=== PATIENT | female | born 1995 | race Caucasian/White ===

== ENCOUNTER 2018-03-01 18:57 | Outpatient (CLI) | payer MEDICAID ==
[~2018-03-01] VITALS: Ht 167.6 cm; Wt 118.5 kg
[~2018-03-01 18:57] MED LIST: ARPZ20T PO; ATOM40CA3 PO; AZIT200S47 PO; FLT05NA16 NSEACH; HYDR473S16 PO; OMEP-10 PO; SRTR100T PO; tetracaine lollipops PO
[2018-03-01 19:37] VITALS: BP 134/81
[2018-03-01 20:13] LABS: BILIRUBIN,URINE NEGATIVE (NEGATIVE); CLARITY,URINE CLEAR; COLOR,URINE YELLOW; GLUCOSE, URINE (UA) NEGATIVE (NEGATIVE); KETONES,URINE NEGATIVE (NEGATIVE); LEUKOCYTE ESTERASE ,URINE 1+ (NEGATIVE); NITRITE,URINE NEGATIVE (NEGATIVE); PH,URINE 8 (5-9); PROTEIN,URINE 1+ (NEGATIVE); UROBILINOGEN,URINE NORMAL (NORMAL)
[2018-03-01 20:30] LABS: BACTERIA,URINE FEW /HPF; WBC,URINE 0-2 /HPF
[2018-03-01 20:45] VITALS: BP 136/88
--- NOTE | 2018-03-04 15:52 | Physician Query-Final Dx ---
VIVIAN YO 03/04/18 1552: Clinic Account Progress/Dx Physician Query: Please give diagnosis Please provide diagnosis and weeks of gestation. Date of Service Mar 01, 2018 at 18:57 GREG GRAY MD 03/14/18 0729: Clinic Account Progress/Dx DIAGNOSIS: Diagnosis 1. Abdominal pain--ligamentous stretch 2. IUP at 30 weeks gestation VIVIAN YO Mar 04, 2018 15:52 GREG GRAY MD Mar 14, 2018 07:29
== END 2018-03-01 21:00 | disposition home or self-care (01) ==
LOC: WSo 18:57 → LDRP 18:59 → WSo 21:00
PROVIDERS: ATTEND Family Medicine
DX: R10.9 Unspecified abdominal pain (principal); Z3A.30 30 weeks gestation of pregnancy
CPT/HCPCS: 81000; 99213

== ENCOUNTER → 2018-03-17 | Outpatient (CLI) | payer MEDICAID ==
--- NOTE | 2018-03-17 12:56 | Diagnostic Imaging Report ---
INDICATION: survey. TECHNIQUE: Multiple real-time grayscale images were obtained over the gravid uterus. COMPARISON: None. FINDINGS: There is a single live fetus in a cephalic presentation. heart rate was recorded at 144 beats per minute. Placenta is anterior. Amniotic fluid volume is normal. survey shows kidneys, bladder and stomach to be unremarkable. There is a four-chamber heart. There is a three-vessel cord with normal insertion. The spine is limited in evaluation due to position. In addition, brain posterior fossa is limited in evaluation. Biometrical measurements are as follows: Biparietal 7.99 cm, age 32 weeks 1 days. Head circumference 28.99 cm, age 32 weeks 0 days. Abdominal circumference 25.60 cm, age 29 weeks 6 days. Femur length 5.73 cm, age 30 weeks 1 days. Sonographic estimate age: 31 weeks 1 days. Sonographic estimated date of delivery: 05/18/2018. Estimated Weight: 1535 gm (+/- 224 gm). LMP percentile: 2%. heart rate: 144 beats per minute. number: 1 of 1. IMPRESSION: Single live IUP 31 weeks 1 day gestational age. Estimated date of confinement sonographically is 05/18/2018. survey is unremarkable although spine and brain was limited due to position. Followup could be obtained. Dictated by: Dictated on workstation # [id number]
== END ==
LOC: RAD 09:08
PROVIDERS: ATTEND Family Medicine
DX: Z36.89 Encounter for other specified antenatal screening (principal); Z3A.31 31 weeks gestation of pregnancy
CPT/HCPCS: 76805

== ENCOUNTER 2018-04-16 22:43 | Emergency (ER) | payer MEDICAID ==
[~2018-04-16] VITALS: Ht 167.6 cm; Wt 131.5 kg
[~2018-04-16 22:43] MED LIST changes: +IBUP-844 PO; +LABE200T7 PO; +PREN-53 PO
[2018-04-16] MEDS ORDERED: ACETAMINOPHEN 500 MG TAB (TYLENOL) PO ONE (23:30)
[2018-04-16 23:37] LABS: BASOPHILS % (AUTO) 0 % (0-10); EOSINOPHILS # (AUTO) 0.5 10^3/uL (0.0-0.3); EOSINOPHILS % (AUTO) 6 % (0-10); HEMATOCRIT 37 % (35-52); HEMOGLOBIN 12.3 G/DL (11.5-16.0); LYMPHOCYTES # (AUTO) 2.3 X 10^3 (1.0-4.0); LYMPHOCYTES % (AUTO) 28 % (12-44); MEAN CORPUSCULAR HEMOGLOBIN 29 PG (25-34); MEAN CORPUSCULAR HGB CONC 33 G/DL (32-36); MEAN CORPUSCULAR VOLUME 88 FL (80-99); MEAN PLATELET VOLUME 11.5 FL (7.4-10.4); MONOCYTES # (AUTO) 0.6 X 10^3 (0.0-1.0); MONOCYTES % (AUTO) 7 % (0-12); NEUTROPHILS # (AUTO) 4.9 X 10^3 (1.8-7.8); NEUTROPHILS % (AUTO) 59 % (42-75); PLATELET COUNT 212 10^3/uL (130-400); RED BLOOD COUNT 4.18 10^6/uL (4.35-5.85); WHITE BLOOD COUNT 8.3 10^3/uL (4.3-11.0)
--- NOTE | 2018-04-16 23:41 | ED GU-Female ---
General Chief Complaint: General Problems/Pain Stated Complaint: SWELLING,HEADACHE Source: patient Exam Limitations: no limitations History of Present Illness Date Seen by Provider: Apr 16, 2018 Time Seen by Provider: 23:24 Initial Comments Patient presents to ER by private conveyance with chief complaint she's having right upper quadrant abdominal pain and increased swelling in her bilateral lower extremities and around her waist as well as a mild headache 6 out of 10. It is not the worst headache of her life. She's having no visual disturbances. She normally wears glasses but she says she recently broke them. She remarks that she is 4 days post vaginal delivery otherwise healthy child where she was preeclamptic with hypertension. Her blood pressure is been elevated she suspects because her headache has come back. She does not know whether she had severe Dr. Gray. There is no history of seizure disorder. She' s been using labetalol 200 mg twice a day as well as ibuprofen 600 mg 4 times a day but her last dose being about 5 hours ago. at 36w Allergies and Home Medications Allergies Coded Allergies: Penicillins (Unverified Allergy, 04/18/12) aspartame (Unverified Allergy, 04/18/12) Home Medications Ibuprofen 600 Mg Tablet, 600 MG PO Q6H Prescribed by: GREG GRAY on 04/14/18 1028 Labetalol HCl 200 Mg Tablet, 200 MG PO BID Prescribed by: GREG GRAY on 04/14/18 1028 Patient Home Medication List Home Medication List Reviewed: Yes Review of Systems Review of Systems Constitutional: No chills, No diaphoresis, No fever EENTM: No hearing loss, No ear pain Respiratory: No cough, No phlegm Cardiovascular: No chest pain, No palpitations Gastrointestinal: No abdominal pain, No constipation, No diarrhea, No nausea Genitourinary: denies discharge, denies dysuria : No Expected Date of Delivery: Apr 12, 2018 Musculoskeletal: No back pain, No joint pain Past Fwhlocj-Xoqcox-Qrdacr Hx Patient Social History Alcohol Use: Denies Use Recreational Drug Use: Yes Drug of Choice: thc Smoking Status: Current Everyday Smoker Type Used: Cigarettes Recent Foreign Travel: No Contact w/Someone Who Travel: No Recent Hopitalizations: No Immunizations Up To Date PED Vaccines UTD: Yes Seasonal Allergies Seasonal Allergies: No Past Medical History Surgeries: Yes (wisdom teeth ) Respiratory: No Cardiac: No Neurological: No Genitourinary: No Gastrointestinal: No Musculoskeletal: Yes (WEAK ANKLE) Endocrine: No HEENT: No Cancer: No Psychosocial: Yes ADD/ADHD, Anxiety, PTSD, Bipolar, Personality Disorder, Schizophrenia, Depression Integumentary: No Blood Disorders: No Adverse Reaction/Blood Tranf: No Family Medical History Unobtainable family history due to adoption Physical Exam Vital Signs Vital Signs - First Documented 04/16/18 23:15 Temp 98.8 Pulse 84 Resp 20 B/P (MAP) 162/103 (122) Pulse Ox 99 O2 Delivery Room Air Capillary Refill : Height, Weight, BMI Height: 5'6.00" Weight: 295lbs. 4.0oz. 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, no motor/sensory deficits, alert, normal mood/affect, oriented x 3 Skin: normal color, warm/dry Progress/Results/Core Measures Suspected Sepsis SIRS Temperature: Pulse: Respiratory Rate: Laboratory Tests 04/16/18 23:25: White Blood Count 8.3 Blood Pressure / Mean: Laboratory Tests 04/16/18 23:25: Creatinine 0.80, Platelet Count 212, Total Bilirubin 0.3 Results/Orders Lab Results Laboratory Tests Test 04/16/18 23:25 04/16/18 23:41 Range/Units White Blood Count 8.3 4.3-11.0 10^3/uL Red Blood Count 4.18 L 4.35-5.85 10^6/uL Hemoglobin 12.3 11.5-16.0 G/DL Hematocrit 37 35-52 % Mean Corpuscular Volume 88 80-99 FL Mean Corpuscular Hemoglobin 29 25-34 PG Mean Corpuscular Hemoglobin Concent 33 32-36 G/DL Red Cell Distribution Width 17.0 H 10.0-14.5 % Platelet Count 212 130-400 10^3/uL Mean Platelet Volume 11.5 H 7.4-10.4 FL Neutrophils (%) (Auto) 59 42-75 % Lymphocytes (%) (Auto) 28 12-44 % Monocytes (%) (Auto) 7 0-12 % Eosinophils (%) (Auto) 6 0-10 % Basophils (%) (Auto) 0 0-10 % Neutrophils # (Auto) 4.9 1.8-7.8 X 10^3 Lymphocytes # (Auto) 2.3 1.0-4.0 X 10^3 Monocytes # (Auto) 0.6 0.0-1.0 X 10^3 Eosinophils # (Auto) 0.5 H 0.0-0.3 10^3/uL Basophils # (Auto) 0.0 0.0-0.1 10^3/uL Sodium Level 139 135-145 MMOL/L Potassium Level 4.1 3.6-5.0 MMOL/L Chloride Level 103 98-107 MMOL/L Carbon Dioxide Level 24 21-32 MMOL/L Anion Gap 12 5-14 MMOL/L Blood Urea Nitrogen 18 7-18 MG/DL Creatinine 0.80 0.60-1.30 MG/DL Estimat Glomerular Filtration Rate > 60 BUN/Creatinine Ratio 23 Glucose Level 82 70-105 MG/DL Calcium Level 9.3 8.5-10.1 MG/DL Corrected Calcium 9.9 8.5-10.1 MG/DL Magnesium Level 1.8 1.8-2.4 MG/DL Total Bilirubin 0.3 0.1-1.0 MG/DL Aspartate Amino Transf (AST/SGOT) 61 H 5-34 U/L Alanine Aminotransferase (ALT/SGPT) 44 0-55 U/L Alkaline Phosphatase 86 40-136 U/L Total Protein 6.1 L 6.4-8.2 GM/DL Albumin 3.3 3.2-4.5 GM/DL Urine Color YELLOW Urine Clarity CLEAR Urine pH 6 5-9 Urine Specific [place] 1.010 L 1.016-1.022 Urine Protein 4+ NEGATIVE Urine Glucose (UA) NEGATIVE NEGATIVE Urine Ketones NEGATIVE NEGATIVE Urine Nitrite NEGATIVE NEGATIVE Urine Bilirubin NEGATIVE NEGATIVE Urine Urobilinogen NORMAL NORMAL MG/DL Urine Leukocyte Esterase 1+ H NEGATIVE Urine RBC (Auto) 4+ H NEGATIVE Urine RBC RARE /HPF Urine WBC RARE /HPF Urine Squamous Epithelial Cells 0-2 /HPF Urine Crystals NONE /LPF Urine Bacteria TRACE /HPF Urine Casts NONE /LPF Urine Mucus NEGATIVE /LPF Urine Culture Indicated NO My Orders Orders - AUDREY BENITEZ Acetaminophen Tablet (Tylenol Tablet) (04/16/18 23:30) Cbc With Automated Diff (04/16/18 23:27) Comprehensive Metabolic Panel (04/16/18 23:27) Ua Culture If Indicated (04/16/18 23:27) Magnesium (04/16/18 23:27) Chest Pa/Lat (2 View) (04/17/18 00:01) Medications Given in ED Current Medications Medications Dose Ordered Sig/Le Route Start Time Stop Time Status Last Admin Dose Admin Acetaminophen 1,000 mg ONCE ONCE PO 04/16/18 23:30 04/16/18 23:34 DC 04/16/18 23:54 1,000 MG Vital Signs/I&O 04/16/18 23:15 Temp 98.8 Pulse 84 Resp 20 B/P (MAP) 162/103 (122) Pulse Ox 99 O2 Delivery Room Air Capillary Refill : Progress Note : Time: 23:45 Progress Note Headache could be secondary to the elevated blood pressure and is not worse in her life nor's or any other neurologic symptoms. No evidence of fluid overload such as pulmonary edema seizures are slowed mentation. Her edema in her bilateral lower extremities is present but mild however she states is gotten worse in the past day. She did take her labetalol she said about 5 or 6 hours ago and her blood pressure on presentation was in the 160s systolic over 105 however with some rest is down to 147/90. Plan to get urinalysis, CBC CMP and a chest x-ray looking for pulmonary edema. Diagnostic Imaging Diagonstic Imaging: Xray Plain Films/CT/US/NM/MRI: chest (2v) Comments No acute cardiopulmonary process noted. No pulmonary edema. Reviewed: Reviewed by Me Consults Consults : Consulting Physician: URBAN MCCABE MD Consults Notes Discussed the case imaging and labs and findings and her medications and Dr. Mccabe recommends the patient be followed up this week by Dr. Sierra but as of this moment would not make any changes to her medicines. The patient's blood pressure had improved down below 160/105 just with resting. Departure Impression Primary Impression: Preeclampsia in period Disposition: 01 HOME, SELF-CARE Condition: Stable Departure-Patient Inst. Decision time for Depature: 00:22 Referrals: GREG GRAY MD (PCP/Family) Primary Care Physician Patient Instructions: Preeclampsia (DC) Add. Discharge Instructions: Follow-up with Dr. Gray in his clinic in the next week. If you have the worst headache of your life, seizures, worsening abdominal pain and swelling or other worrisome symptoms then you should return sooner. Continue to treat your headache with Tylenol, ibuprofen, rest and distraction. Keep your follow-up appointment at [facility] to get back on your Abilify. All discharge instructions reviewed with patient and/or family. Voiced understanding. Copy Copies To 1: GREG GRYA MD, TITUS J Apr 16, 2018 23:41
[2018-04-16 23:46] LABS: BILIRUBIN,URINE NEGATIVE (NEGATIVE); CLARITY,URINE CLEAR; COLOR,URINE YELLOW; GLUCOSE, URINE (UA) NEGATIVE (NEGATIVE); KETONES,URINE NEGATIVE (NEGATIVE); LEUKOCYTE ESTERASE ,URINE 1+ (NEGATIVE); NITRITE,URINE NEGATIVE (NEGATIVE); PH,URINE 6 (5-9); PROTEIN,URINE 4+ (NEGATIVE); UROBILINOGEN,URINE NORMAL (NORMAL)
[2018-04-16 23:52] LABS: ALANINE AMINOTRANSFERASE 44 U/L (0-55); ALBUMIN 3.3 GM/DL (3.2-4.5); ALKALINE PHOSPHATASE 86 U/L (40-136); BILIRUBIN,TOTAL 0.3 MG/DL (0.1-1.0); BUN/CREATININE RATIO 23; CALCIUM 9.3 MG/DL (8.5-10.1); CARBON DIOXIDE 24 MMOL/L (21-32); CHLORIDE 103 MMOL/L (98-107); GFR ESTIMATED > 60; GLUCOSE 82 MG/DL (70-105); MAGNESIUM 1.8 MG/DL (1.8-2.4); POTASSIUM 4.1 MMOL/L (3.6-5.0); SODIUM 139 MMOL/L (135-145); TOTAL PROTEIN 6.1 GM/DL (6.4-8.2)
[2018-04-16 23:54] LABS: BACTERIA,URINE TRACE /HPF; RBC,URINE RARE /HPF; SQUAMOUS EPITHELIAL CELL,UR 0-2 /HPF; WBC,URINE RARE /HPF
[2018-04-17 00:28] VITALS: BP 158/98
--- OUTSIDE RECORDS SUMMARY | 2018-04-17 00:59 | XMS REPORT | Continuity of Care Document ---
Author Author [facility] Address Unknown Phone Unavailable Allergies Active Description Code Type Severity Reaction Onset Reported/Identified Relationship to Patient Clinical Status Yes Invega [id number] Drug Allergy N/A N/A Yes paliperidone 07302 Drug Allergy N/A N/A Confirmed or Verified Yes Penicillins 476 Drug Allergy N/ A N/A Yes penicillins 3 Drug N/A N/A Yes aspartame [id number] Drug Allergy Unknown N/A 04/18/2012 Yes Penicillins [id number] Drug Allergy Unknown N/A 04/18/2012 Yes PENICILLINS [id number] Drug Allergy N/A N/A 07/29/2012 Yes PENICILLINS 26 Drug Class High N/A 01/17/2013 Yes Penicillins Drug Allergy N/A N/A 06/07/2013 Yes PALIPERIDONE 14126 DRUG INGREDI N/A Other 12/12/2015 Medications Medication Packaging Start Date Stop Date Route Dosage Sig ASENAPINE MALEATE 5 MG SL SUBL Sublingual 10 2 TIMES DAILY PRAZOSIN HCL 1 MG PO CAPS 2015 Oral 2 BEDTIME MICONAZOLE NITRATE 200 MG VA SUPP 12/15/2015 12/18/2015 Vaginal 200 BEDTIME FLUCONAZOLE 100 MG PO TABS 201512/19/2015 Oral 150 DAILY ALUM T MAG HYDROXIDE-SIMETH 200-200-20 MG/5ML PO SUSP 01/23/2016 Oral 30 4 TIMES DAILY PRN TRAZODONE HCL 100 MG PO TABS 05/2015 Oral 100 BEDTIME PRN OLANZAPINE 10 MG PO TBDP 2015 Oral 10 2 TIMES DAILY PRN ACETAMINOPHEN 325 MG PO TABS 05/2015 Oral 650 EVERY 6 HOURS PRN NICOTINE POLACRILEX 2 MG MT LOZG 01/23/2016 Oral 2 EVERY 2 HOURS PRN MAGNESIUM HYDROXIDE 400 MG/5ML PO SUSP 01/23/2016 Oral 30 DAILY PRN QUETIAPINE FUMARATE 25 MG PO TABS 01/23/2016 Oral 25 4 TIMES DAILY PRN NICOTINE 14 MG/24HR TD PT24 01/22 Transdermal 1 DAILY NICOTINE 21 MG/24HR TD PT24 01/22 Transdermal 1 DAILY METRONIDAZOLE 500 MG PO TABS 05/201501/30/2016 Oral 500 2 TIMES DAILY BUPROPION HCL ER (XL) 150 MG PO TB24 01/23/2016 Oral 150 DAILY ASENAPINE MALEATE 5 MG SL SUBL Sublingual 10 2 TIMES DAILY OLANZAPINE 10 MG PO TABS 2015 Oral 10 2 TIMES DAILY PRN Problems Date Dx Coded Attending Type Code Diagnosis Diagnosed By 08/03/2012 Other 296.90 UNSPECIFIED EPISODIC MOOD DISORDER 08/03/2012 Other 298.9 PSYCHOSIS NOS 08/03/2012 Other V62.84 SUICIDAL IDEATION 08/30/2012 Other 296.64 BIPOL I, REC EPIS OR CURRENT MIXED, SEVERE, SPEC W PSYCH BEH 08/30/2012 Other 300.00 ANXIETY STATE NOS 08/30/2012 Other V62.84 SUICIDAL IDEATION 01/04/2013 381.01 ACUTE SEROUS OTITIS MEDIA 01/04/2013 SAMI GARAY APRN A 381.01 ACUTE SEROUS OTITIS MEDIA 01/04/2013 SAMI GARAY APRN A 381.01 ACUTE SEROUS OTITIS MEDIA 01/04/2013 CARLOS NEGRETE MD 381.01 ACUTE SEROUS OTITIS MEDIA 06/06/2013 SAMI GARAY APRN 478.19 OTHER DISEASES OF NASAL CAVITY AND SINUSES 06/06/2013 SAMI GARAY APRN 786.2 COUGH 06/06/2013 SAMI GARAY APRN 478.19 OTHER DISEASES OF NASAL CAVITY AND SINUSES 06/06/2013 SAMI GARAY APRN A 786.2 COUGH 06/06/2013 CARLOS NEGRETE MD 478.19 OTHER DISEASES OF NASAL CAVITY AND SINUSES 06/06/2013 CARLOS NEGRETE MD 786.2 COUGH 06/07/2013 SAMI GARAY APRN V16.41 FAM HX CANCER, OVARY 06/07/2013 SAMI GARAY APRN V25.01 CONTRACEPTION - ORAL CONTRACEPTION 06/07/2013 SAMI GARAY APRN V74.5 STD SCREEN 06/07/2013 SAMI GARAY APRN V16.41 FAM HX CANCER, OVARY 06/07/2013 SAMI GARAY APRN V25.01 CONTRACEPTION - ORAL CONTRACEPTION 06/07/2013 SAMI GARAY APRN V74.5 STD SCREEN 06/07/2013 CARLOS NEGRETE MD V16.41 FAM HX CANCER, OVARY 06/07/2013 CARLOS NEGRETE MD V25.01 CONTRACEPTION - ORAL CONTRACEPTION 06/07/2013 CARLOS NEGRETE MD V74.5 STD SCREEN 08/14/2013 SAMI GARAY APRN V72.41 TEST NEGATIVE RESULT 08/14/2013 CARLOS NEGRETE MD V72.41 TEST NEGATIVE RESULT 08/15/2013 SAMI GARAY APRN 278.01 MORBID OBESITY 08/15/2013 SAMI GARAY APRN 626.0 ABSENCE OF MENSTRUATION 08/15/2013 SAMI GARAY APRN V72.62 LAB SCREENING- GENERAL PHYSICAL 08/15/2013 CARLOS NEGRETE MD 278.01 MORBID OBESITY 08/15/2013 CARLOS NEGRETE MD 626.0 ABSENCE OF MENSTRUATION 08/15/2013 CARLOS NEGRETE MD V72.62 LAB SCREENING- GENERAL PHYSICAL 08/31/2013 CARLOS NEGRETE MD 133.0 SCABIES 08/31/2013 CARLOS NEGRETE MD 704.8 OTHER SPECIFIED DISEASES OF HAIR AND HAIR FOLLICLES 01/18/2014 SIMRAN GOODWIN 295.90 SCHIZOPHRENIA NOS-UNSPEC 01/18/2014 SIMRAN GOODWIN 296.20 DEPRESS PSYCHOSIS-UNSPEC 01/18/2014 SIMRAN GOODWIN V62.84 SUICIDE IDEATION 01/31/2014 WENDY BANDA 477.9 ALLERGIC RHINITIS NOS 01/31/2014 WENDY BANDA 787.02 NAUSEA ALONE 02/10/2014 HENRRY FRIEDMAN 295.82 SCHIZOPHRENIA NEC-CHR 02/10/2014 HENRRY FRIEDMAN V62.84 SUICIDE IDEATION 02/11/2014 HENRRY FRIEDMAN 789.00 ABDOMINAL PAIN, UNSPECIF 05/02/2014 RAULITO ISRAEL 560.1 PARALYTIC ILEUS 05/02/2014 RAULITO ISRAEL 625.9 FEM GENITAL SYMPTOMS NOS 05/02/2014 RAULITO ISRAEL 789.00 ABDOMINAL PAIN, UNSPECIF 05/04/2014 RAULITO ISRAEL 625.9 FEM GENITAL SYMPTOMS NOS 05/04/2014 HENRRY FRIEDMAN 465.9 ACUTE URI NOS 05/04/2014 HENRRY FRIEDMAN 786.2 COUGH 05/09/2014 CARLOS DAMIAN 305.1 TOBACCO USE DISORDER 05/09/2014 CARLOS DAMIAN 490 BRONCHITIS NOS 05/09/2014 CARLOS DAMIAN 786.2 COUGH 05/20/2014 THADDEUS BURGESS 789.00 ABDOMINAL PAIN, UNSPECIF 05/20/2014 THADDEUS BURGESS 338.29 CHRONIC PAIN NEC 05/20/2014 THADDEUS BURGESS 789.00 ABDOMINAL PAIN, UNSPECIF 08/03/2014 D 295.90 SCHIZOPHRENIA NOS-UNSPEC 08/03/2014 D 311 DEPRESSIVE DISORDER NEC 12/25/2014 BOOKER BAILEY 625.9 FEM GENITAL SYMPTOMS NOS 12/25/2014 BOOKER BAILEY V13.89 HX DISEASE NEC 02/10/2015 ZOILA GUTHRIE 380.10 INFEC OTITIS EXTERNA NOS 02/10/2015 ZOILA GUTHRIE 388.70 OTALGIA NOS 02/14/2015 HENRRY FRIEDMAN 300.9 NONPSYCH MENTAL DIS NOS 02/14/2015 HENRRY FRIEDMAN 296.43 BPI-RECENT MANIC SEVERE 02/14/2015 HENRRY FRIEDMAN V62.84 SUICIDE IDEATION 12/17/2015 KABINS, RENETTA B V 250434 Suicidal KABINS, RENETTA B 12/17/2015 KABINS, RENETTA B V B37.9 Candidiasis, unspecified KABINS, RENETTA B 12/17/2015 KABINS, RENETTA B V F31.9 Bipolar disorder, unspecified KABINS, RENETTA B 12/17/2015 KABINS, RENETTA B V F43.10 Post-traumatic stress disorder, unspecified KABINS, RENETTA B 12/17/2015 KABINS, RENETTA B P R45.851 Suicidal ideations KABINS, RENETTA B 01/23/2016 GERARDO WEISS, NEETU PEACOCK F25.8 OTHER SCHIZOAFFECTIVE DISORDERS 01/23/2016 GERARDO WEISS, NEETU PEACOCK R03.0 ELEVATED BLOOD-PRESSURE READING, W/O DIAGNOSIS OF 01/25/2016 ALEXIA DOBSON V 688 Psychosis ALEXIA DOBSON 01/25/2016 ALEXIA DOBSON V A59.9 Trichomoniasis, unspecified ALEXIA DOBSON 01/25/2016 ALEXIA DOBSON P F25.1 Schizoaffective disorder, depressive type ALEXIA DOBSON 10/04/2017 Raulito Israel MD O09.93 Supervision high risk , third trimester 10/04/2017 Raulito Israel MD O99.330 Tobacco abuse, gestational 10/04/2017 Raulito Israel MD P04.49 Suspected damage from maternal drug use 10/04/2017 COLLIN WEISS, JUANCARLOS Mcclure O09.93 Supervision of high risk , unsp, third trimester 10/06/2017 Raulito Israel MD O99.321 Drug use complicating , first trimester 10/06/2017 Raulito Israel MD3A.09 9 weeks gestation of 10/10/2017 Raulito Israel MD Z23 NEED FOR PROPHYLACTIC VACCINATION WITH [id number]-[id number] (MMR) VACCINE 11/01/2017 Raulito Israel MD3A.13 13 weeks gestation of 12/22/2017 Raulito Israel MD O99.322 Drug use complicating , second trimester 12/22/2017 Raulito Israel MD3A.20 20 weeks gestation of 03/01/2018 GREG GRAY MD, Ot R10.9 UNSPECIFIED ABDOMINAL PAIN 03/01/2018 GREG GRAY MD, Ot Z3A.30 30 WEEKS GESTATION OF 03/14/2018 GREG GRAY MD, Ot R10.9 UNSPECIFIED ABDOMINAL PAIN 03/14/2018 GREG GRAY MD, Ot Z3A.30 30 WEEKS GESTATION OF 03/22/2018 GREG GRAY MD, Ot Z36.89 ENCOUNTER FOR OTHER SPECIFIED 03/22/2018 GREG GRAY MD, Ot Z3A.31 31 WEEKS GESTATION OF 04/01/2018 GREG GRAY MD, Ot Z36.89 ENCOUNTER FOR OTHER SPECIFIED 04/01/2018 GREG GRAY MD Ot Z3A.31 31 WEEKS GESTATION OF Procedures Code Description [place] [address] TEST, URINE (IN- HOUSE) 06/07/2013 97825 US PELVIC COMPL (REFLEX CPT - 03810) 06/07/2013 57784 GC/CHLAM URINE (STATE) 06/07/2013 89210 TEST, URINE (IN- HOUSE) 08/14/2013 49326 ROUTINE VENIPUNCTURE 01/18/2014 12498 COMPREHEN METABOLIC PANEL 01/18/2014 55511 DRUG SCRN 1+ CLASS NONCHROMO 01/18/2014 73786 ASSAY OF SALICYLATE 01/18/2014 05473 URINE TEST 01/18/2014 61846 ASSAY OF ACETAMINOPHEN 01/18/2014 48917 ASSAY OF ETHANOL 01/18/2014 75244 ASSAY THYROID STIM HORMONE 01/18/2014 95421 COMPLETE CBC, AUTOMATED 01/18/2014 17160 ELECTROCARDIOGRAM, TRACING 01/18/2014 36993 EMERGENCY DEPT VISIT 01/18/2014 29460 URINALYSIS, AUTO W/SCOPE 01/31/2014 91199 URINE TEST 01/31/2014 80165 EMERGENCY DEPT VISIT 01/31/2014 05869 ROUTINE VENIPUNCTURE 02/10/2014 07902 COMPREHEN METABOLIC PANEL 02/10/2014 55733 DRUG SCRN 1+ CLASS NONCHROMO 02/10/2014 41806 ASSAY OF SALICYLATE 02/10/2014 09192 ASSAY OF ACETAMINOPHEN 02/10/2014 27805 ASSAY OF ETHANOL 02/10/2014 77703 CHORIONIC GONADOTROPIN ASSAY 02/10/2014 95613 COMPLETE CBC, AUTOMATED 02/10/2014 09524 EMERGENCY DEPT VISIT 02/10/2014 63319 EMERGENCY DEPT VISIT 02/10/2014 76422 ROUTINE VENIPUNCTURE 02/11/2014 39093 COMPREHEN METABOLIC PANEL 02/11/2014 87506 URINALYSIS, AUTO W/SCOPE 02/11/2014 59341 COMPLETE CBC W/AUTO DIFF WBC 02/11/2014 78537 EMERGENCY DEPT VISIT 02/11/2014 69659 EMERGENCY DEPT VISIT 02/11/2014 65068 ROUTINE VENIPUNCTURE 05/02/2014 41513 X-RAY EXAM OF ABDOMEN 05/02/2014 64635 METABOLIC PANEL TOTAL CA 05/02/2014 74459 URINALYSIS, AUTO W/SCOPE 05/02/2014 30646 CHORIONIC GONADOTROPIN ASSAY 05/02/2014 56198 COMPLETE CBC W/AUTO DIFF WBC 05/02/2014 48411 CULTURE, BACTERIA, OTHER 05/02/2014 03130 SMEAR, GRAM STAIN 05/02/2014 11157 SMEAR, WET M[place], SALINE/ INK 05/02/2014 10485 CHYLMD TRACH, DNA, AMP PROBE 05/02/2014 51632 EMERGENCY DEPT VISIT 05/02/2014 48948 EMERGENCY DEPT VISIT 05/02/2014 54032 TRANSVAGINAL US, NON-OB 05/04/2014 44286 EMERGENCY DEPT VISIT 05/04/2014 74523 EMERGENCY DEPT VISIT 05/09/2014 75061 EMERGENCY DEPT VISIT 05/09/2014 A0380 PER LOADED MILEAGE 05/20/2014 A0429 BLS-EMERGENCY 05/20/2014 09672 EMERGENCY DEPT VISIT 05/20/2014 88212 ROUTINE VENIPUNCTURE 08/03/2014 69473 COMPREHEN METABOLIC PANEL 08/03/2014 93268 DRUG SCREEN NON TLC DEVICES 08/03/2014 64780 DRUG SCREEN QUANTALCOHOLS 08/03/2014 58039 ANALGESICS NON-OPIOID 1 OR 2 08/03/2014 25823 URINALYSIS, AUTO W/SCOPE 08/03/2014 23918 URINE TEST 08/03/2014 41585 EMERGENCY DEPT VISIT 08/03/2014 46607 EMERGENCY DEPT VISIT 12/25/2014 47753 EMERGENCY DEPT VISIT 12/25/2014 39282 EMERGENCY DEPT VISIT 02/10/2015 A0380 PER LOADED MILEAGE 02/14/2015 A0429 BLS-EMERGENCY 02/14/2015 05553 ROUTINE VENIPUNCTURE 02/14/2015 01179 COMPREHEN METABOLIC PANEL 02/14/2015 72606 DRUG SCREEN NON TLC DEVICES 02/14/2015 80204 DRUG SCREEN QUANTALCOHOLS 02/14/2015 90746 ANALGESICS NON-OPIOID 1 OR 2 02/14/2015 59322 CHORIONIC GONADOTROPIN ASSAY 02/14/2015 60600 COMPLETE CBC, AUTOMATED 02/14/2015 97507 ELECTROCARDIOGRAM, TRACING 02/14/2015 35936 EMERGENCY DEPT VISIT 02/14/2015 A0425 GROUND MILEAGE 11/15/2015 A0427 ALS1-EMERGENCY 11/15/2015 15304 ROUTINE VENIPUNCTURE 11/15/2015 97411 CHORIONIC GONADOTROPIN ASSAY 11/15/2015 28313 COMPLETE CBC W/AUTO DIFF WBC 11/15/2015 32137 EMERGENCY DEPT VISIT 11/15/2015 16202 ROUTINE VENIPUNCTURE 12/11/2015 58243 COMPREHEN METABOLIC PANEL 12/11/2015 86146 DRUG SCREEN NON TLC DEVICES 12/11/2015 69460 DRUG SCREEN QUANTALCOHOLS 12/11/2015 74531 ANALGESICS NON-OPIOID 1 OR 2 12/11/2015 17522 URINALYSIS, AUTO W/SCOPE 12/11/2015 85304 URINE TEST 12/11/2015 10837 ASSAY THYROID STIM HORMONE 12/11/2015 80031 COMPLETE CBC, AUTOMATED 12/11/2015 60047 ELECTROCARDIOGRAM, TRACING 12/11/2015 80293 EMERGENCY DEPT VISIT 12/11/2015 22768 CULTURE AEROBIC IDENTIFY COLLIN WEISS, JUANCARLOS [place] 10/04/2017 49471 URINE CULTURE/COLONY COUNT COLLIN WEISS, JUANCARLOS [place] 10/04/2017 35316 MICROBE SUSCEPTIBLE STEPHANY JUANCARLOS POLANCO MD 10/04/2017 Results Test Result Range UCG GROUP - 11/08/13 00:00 UCG P Negative UA - 11/08/13 00:00 PH 7.0 4.5-8.0 SG 1.025 1.003-1.035 UABILI N UABLD N UACOLOR YEL UAGLU N UAKET N UALEUK N UANIT N UAURO 0.2 0-0.2 CLARITY CLD PROTEIN N UA WBC R05 UA RBC R05 SQUAMOUS EPITHELIAL CELLS 3+ BACTERIA 1+ AMORPHOUS CRYSTALS 1+ RH TYPE - 12/02/13 00:00 RH P CBC WITH DIFF - 12/02/13 00:00 BASO% 0.3 % 0-2 EOS% 0.7 % 0-7.0 HCT 38.8 % 36.9-47.0 HGB 12.9 G/DL 12.0-16.0 LYMPH% 10.6 % 20-40 MCH 28.1 PG 27-31 MCHC 33.2 G/DL 33-37 MCV 84.5 FL 81-99 MONO% 8.2 % 0-10.0 MPV 11.5 FL 7.3-10.4 NEUTRO% 80.2 % 40-70 PLT 187 10^3u 130-400 RBC 4.6 10^6u 4.2-5.4 RDW 14.9 % 11.5-15.5 WBC 14.1 10^3u 4.8-10.8 NEUTRO# 11.3 10^3u 1.5-7.5 LYMPH# 1.5 10^3u 0.9-4.0 MONO# 1.2 10^3u 0-0.8 EOS# 0.1 10^3u 0-0.6 BASO# 0.0 10^3u 0-0.1 CMP - 12/02/13 00:00 ALB 3.3 G/DL 3.5-5 ALP 78 IU/L 50-130 ALT 61 IU/L 12-65 AST 32 IU/L 10-42 BCR 13.9 10-20 BUN 11 MG/DL 7-18 CA 9.5 MG/DL 8.4-10.2 CL 103 MEQ/L 98-107 CO2 22.7 MEQ/L 22-28 CREA 0.79 MG/DL 0.6-1.0 EGFR 94 eGFR >=60 GLU 89 MG/DL 70-105 K 3.8 MEQ/L 3.5-5.1 NA 135 MEQ/L 134-145 OSMSC 269.0 MOSML 280-300 TBIL 0.2 MG/DL 0.1-1.0 TP 6.7 G/DL 6.0-8.3 Albumin/Globulin Ratio 1.0 0-8 Anion Gap 9.3 8-16 BHCG - 12/02/13 00:00 HCG- Quantitative 111831 MIUML 0-5 UA - 12/03/13 00:00 PH 7.5 4.5-8.0 SG 1.010 1.003-1.035 UABILI N UABLD 3+ UACOLOR RED UAGLU N UAKET N UALEUK TR UANIT N UAURO 0.2 0-0.2 CLARITY CLD PROTEIN 1+ UA WBC R05 UA RBC TNTC SQUAMOUS EPITHELIAL CELLS FEW BACTERIA RARE CBC WITH DIFF - 12/03/13 00:00 BASO% 0.1 % 0-2 EOS% 0.0 % 0-7.0 HCT 37.6 % 36.9-47.0 HGB 12.2 G/DL 12.0-16.0 LYMPH% 6.7 % 20-40 MCH 27.8 PG 27-31 MCHC 32.4 G/DL 33-37 MCV 85.6 FL 81-99 MONO% 5.8 % 0-10.0 MPV 11.6 FL 7.3-10.4 NEUTRO% 87.4 % 40-70 PLT 193 10^3u 130-400 RBC 4.4 10^6u 4.2-5.4 RDW 14.7 % 11.5-15.5 WBC 15.3 10^3u 4.8-10.8 NEUTRO# 13.4 10^3u 1.5-7.5 LYMPH# 1.0 10^3u 0.9-4.0 MONO# 0.9 10^3u 0-0.8 EOS# 0.0 10^3u 0-0.6 BASO# 0.0 10^3u 0-0.1 [facility] - 12/03/13 00:00 BCR 9.9 10-20 BUN 8 MG/DL 7-18 CA 8.6 MG/DL 8.4-10.2 CL 104 MEQ/L 98-107 CO2 22.0 MEQ/L 22-28 CREA 0.81 MG/DL 0.6-1.0 EGFR 91 eGFR >=60 GLU 103 MG/DL 70-105 K 3.9 MEQ/L 3.5-5.1 NA 136 MEQ/L 134-145 OSMSC 270.5 MOSML 280-300 Anion Gap 10.0 8-16 CMP - 12/25/13 00:00 ALB 3.9 G/DL 3.5-5 ALP 88 IU/L 50-130 ALT 38 IU/L 12-65 AST 19 IU/L 10-42 BCR 15.1 10-20 BUN 14 MG/DL 7-18 CA 8.9 MG/DL 8.4-10.2 CL 105 MEQ/L 98-107 CO2 20.6 MEQ/L 22-28 CREA 0.93 MG/DL 0.6-1.0 EGFR 78 eGFR >=60 GLU 101 MG/DL 70-105 K 3.8 MEQ/L 3.5-5.1 NA 138 MEQ/L 134-145 OSMSC 276.3 MOSML 280-300 TBIL 0.2 MG/DL 0.1-1.0 TP 7.2 G/DL 6.0-8.3 Albumin/Globulin Ratio 1.2 0-8 Anion Gap 12.4 8-16 HCG QUAL - 12/25/13 00:00 HCG P CBC WITH DIFF - 12/25/13 00:00 BASO% 0.6 % 0-2 EOS% 4.1 % 0-7.0 HCT 44.0 % 36.9-47.0 HGB 14.0 G/DL 12.0-16.0 LYMPH% 25.8 % 20-40 MCH 27.8 PG 27-31 MCHC 31.8 G/DL 33-37 MCV 87.5 FL 81-99 MONO% 9.7 % 0-10.0 MPV 11.8 FL 7.3-10.4 NEUTRO% 59.8 % 40-70 PLT 238 10^3u 130-400 RBC 5.0 10^6u 4.2-5.4 RDW 14.4 % 11.5-15.5 WBC 8.6 10^3u 4.8-10.8 NEUTRO# 5.1 10^3u 1.5-7.5 LYMPH# 2.2 10^3u 0.9-4.0 MONO# 0.8 10^3u 0-0.8 EOS# 0.4 10^3u 0-0.6 BASO# 0.1 10^3u 0-0.1 UA - 12/25/13 00:00 PH 6.0 4.5-8.0 SG 1.025 1.003-1.035 UABILI NEGATIVE UABLD 2+ UACOLOR YEL UAGLU NEGATIVE UAKET NEGATIVE UALEUK NEGATIVE UANIT NEGATIVE UAURO 0.2 0-0.2 CLARITY SLTCLDY PROTEIN NEGATIVE UA WBC R510 UA RBC R510 SQUAMOUS EPITHELIAL CELLS 3+ BACTERIA 4+ BHCG - 12/25/13 00:00 HCG- Quantitative 4 MIUML 0-5 CBC - 01/18/14 00:00 HCT 39.6 % 36.9-47.0 HGB 12.6 G/DL 12.0-16.0 MCH 27.6 PG 27-31 MCHC 31.8 G/DL 33-37 MCV 86.8 FL 81-99 MPV 11.0 FL 7.3-10.4 PLT 193 10^3u 130-400 RBC 4.6 10^6u 4.2-5.4 RDW 14.2 % 11.5-15.5 WBC 6.3 10^3u 4.8-10.8 CMP - 01/18/14 00:00 ALB 3.7 G/DL 3.5-5 ALP 88 IU/L 50-130 ALT 27 IU/L 12-65 AST 18 IU/L 10-42 BCR 11.2 10-20 BUN 12 MG/DL 7-18 CA 8.6 MG/DL 8.4-10.2 CL 108 MEQ/L 98-107 CO2 25.8 MEQ/L 22-28 CREA 1.07 MG/DL 0.6-1.0 EGFR 66 eGFR >=60 GLU 119 MG/DL 70-105 K 3.9 MEQ/L 3.5-5.1 NA 140 MEQ/L 134-145 OSMSC 280.3 MOSML 280-300 TBIL 0.4 MG/DL 0.1-1.0 TP 6.8 G/DL 6.0-8.3 Albumin/Globulin Ratio 1.2 0-8 Anion Gap 6.2 8-16 ACETAMINOPHEN - 01/18/14 00:00 ACETA <=0.0 UG/ML 10.0-30.0 SALICYLATES - 01/18/14 00:00 SALIC 0.8 MG/DL 2.0-20.0 ETOH - 01/18/14 00:00 ETOH <=3.0 MG/DL 0-5 DRUG SCREEN IN HOUSE - 01/18/14 00:00 MBAR N Negative MBENZO N Negative MCOCN N Negative MMAMP N Negative MMTD N Negative MOPIAT N Negative MPCP N Negative MTCA N Negative MTHC N Negative AMPHETAMINE N Negative UCG GROUP - 01/18/14 00:00 UCG N Negative TSH - 01/18/14 00:00 TSH 1.03 UIUML 0.36-3.74 UCG GROUP - 01/31/14 00:00 UCG N Negative UA - 01/31/14 00:00 PH 5.5 4.5-8.0 SG 1.025 1.003-1.035 UABILI NEGATIVE UABLD TRACE UACOLOR YEL UAGLU NEGATIVE UAKET NEGATIVE UALEUK NEGATIVE UANIT NEGATIVE UAURO 0.2 0-0.2 CLARITY CL PROTEIN NEGATIVE UA WBC R05 UA RBC R05 SQUAMOUS EPITHELIAL CELLS 1+ BACTERIA 2+ CBC - 02/09/14 00:00 HCT 39.9 % 36.9-47.0 HGB 13.1 G/DL 12.0-16.0 MCH 27.2 PG 27-31 MCHC 32.8 G/DL 33-37 MCV 83.0 FL 81-99 MPV 11.0 FL 7.3-10.4 PLT 227 10^3u 130-400 RBC 4.8 10^6u 4.2-5.4 RDW 14.1 % 11.5-15.5 WBC 7.8 10^3u 4.8-10.8 HCG QUAL - 02/09/14 00:00 HCG N CMP - 02/09/14 00:00 ALB 3.8 G/DL 3.5-5 ALP 76 IU/L 39-101 ALT 42 IU/L 12-65 AST 28 IU/L 10-42 BCR 11.4 10-20 BUN 12 MG/DL 7-18 CA 9.1 MG/DL 8.4-10.2 CL 105 MEQ/L 98-107 CO2 22.8 MEQ/L 22-28 CREA 1.05 MG/DL 0.6-1.0 EGFR 68 eGFR >=60 GLU 95 MG/DL 70-105 K 3.5 MEQ/L 3.5-5.1 NA 140 MEQ/L 134-145 OSMSC 279.0 MOSML 280-300 TBIL 0.3 MG/DL 0.1-1.0 TP 7.3 G/DL 6.0-8.3 Albumin/Globulin Ratio 1.1 0-8 Anion Gap 12.2 8-16 ACETAMINOPHEN - 02/09/14 00:00 ACETA 0 UG/ML 10.0-30.0 SALICYLATES - 02/09/14 00:00 SALIC 1.5 MG/DL 2.0-20.0 ETOH - 02/09/14 00:00 ETOH < 3 MG/DL 0-5 DRUG SCREEN IN HOUSE - 02/09/14 00:00 MBAR N Negative MBENZO N Negative MCOCN N Negative MMAMP N Negative MMTD N Negative MOPIAT N Negative MPCP N Negative MTCA N Negative MTHC N Negative AMPHETAMINE N Negative CBC WITH DIFF - 02/11/14 00:00 BASO% 0.5 % 0-2 EOS% 2.2 % 0-7.0 HCT 41.6 % 36.9-47.0 HGB 13.2 G/DL 12.0-16.0 LYMPH% 36.5 % 20-40 MCH 26.7 PG 27-31 MCHC 31.7 G/DL 33-37 MCV 84.0 FL 81-99 MONO% 10.6 % 0-10.0 MPV 10.9 FL 7.3-10.4 NEUTRO% 50.2 % 40-70 PLT 242 10^3u 130-400 RBC 5.0 10^6u 4.2-5.4 RDW 14.1 % 11.5-15.5 WBC 7.4 10^3u 4.8-10.8 NEUTRO# 3.7 10^3u 1.5-7.5 LYMPH# 2.7 10^3u 0.9-4.0 MONO# 0.8 10^3u 0-0.8 EOS# 0.2 10^3u 0-0.6 BASO# 0.0 10^3u 0-0.1 CMP - 02/11/14 00:00 ALB 3.7 G/DL 3.5-5 ALP 72 IU/L 39-101 ALT 35 IU/L 12-65 AST 20 IU/L 10-42 BCR 15.1 10-20 BUN 16 MG/DL 7-18 CA 9.3 MG/DL 8.4-10.2 CL 104 MEQ/L 98-107 CO2 29.5 MEQ/L 22-28 CREA 1.06 MG/DL 0.6-1.0 EGFR 67 eGFR >=60 GLU 84 MG/DL 70-105 K 4.2 MEQ/L 3.5-5.1 NA 140 MEQ/L 134-145 OSMSC 279.8 MOSML 280-300 TBIL 0.2 MG/DL 0.1-1.0 TP 7.0 G/DL 6.0-8.3 Albumin/Globulin Ratio 1.1 0-8 Anion Gap 6.5 8-16 UA - 02/11/14 00:00 PH 7.0 4.5-8.0 SG 1.020 1.003-1.035 UABILI NEGATIVE UABLD NEGATIVE UACOLOR YEL UAGLU NEGATIVE UAKET NEGATIVE UALEUK NEGATIVE UANIT NEGATIVE UAURO 0.2 0-0.2 CLARITY CL PROTEIN NEGATIVE UA WBC R05 UA RBC NORBC SQUAMOUS EPITHELIAL CELLS 2+ BACTERIA RARE MUCOUS OCC CBC WITH DIFF - 02/17/14 00:00 BASO% 0.2 % 0-2 EOS% 0.6 % 0-7.0 HCT 41.4 % 36.9-47.0 HGB 13.5 G/DL 12.0-16.0 LYMPH% 35.8 % 20-40 MCH 28.0 PG 27-31 MCHC 32.6 G/DL 33-37 MCV 85.9 FL 81-99 MONO% 8.6 % 0-10.0 MPV 11.1 FL 7.3-10.4 NEUTRO% 54.8 % 40-70 PLT 233 10^3u 130-400 RBC 4.8 10^6u 4.2-5.4 RDW 14.3 % 11.5-15.5 WBC 10.5 10^3u 4.8-10.8 NEUTRO# 5.8 10^3u 1.5-7.5 LYMPH# 3.8 10^3u 0.9-4.0 MONO# 0.9 10^3u 0-0.8 EOS# 0.1 10^3u 0-0.6 BASO# 0.0 10^3u 0-0.1 HCG QUAL - 02/17/14 00:00 HCG N MARY - 02/17/14 00:00 MARY NOYEA [facility]ET [place] - 02/17/14 00:00 WET [facility] CMP - 02/17/14 00:00 ALB 3.7 G/DL 3.5-5 ALP 66 IU/L 39-101 ALT 29 IU/L 12-65 AST 16 IU/L 10-42 BCR 14.7 10-20 BUN 16 MG/DL 7-18 CA 8.7 MG/DL 8.4-10.2 CL 106 MEQ/L 98-107 CO2 25.6 MEQ/L 22-28 CREA 1.09 MG/DL 0.6-1.0 EGFR 65 eGFR >=60 GLU 114 MG/DL 70-105 K 3.3 MEQ/L 3.5-5.1 NA 143 MEQ/L 134-145 OSMSC 287.0 MOSML 280-300 TBIL 0.3 MG/DL 0.1-1.0 TP 7.1 G/DL 6.0-8.3 Albumin/Globulin Ratio 1.1 0-8 Anion Gap 11.4 8-16 UA - 02/17/14 00:00 PH 6.0 4.5-8.0 SG >=1.030 1.003-1.035 UABILI 1+ UABLD 3+ UACOLOR YEL UAGLU NEGATIVE UAKET 1+ UALEUK TRACE UANIT NEGATIVE UAURO 0.2 0-0.2 CLARITY HAZY PROTEIN 1+ UA WBC R1020 UA RBC R510 SQUAMOUS EPITHELIAL CELLS 4+ BACTERIA 3+ CALCIUM OXALATE CRYSTALS 3+ CHLAMYDIA GC DNA - 02/17/14 00:00 CHLGCU1 NOT DETECTED NOT DETECTED CHLGCU2 NOT DETECTED NOT DETECTED NOTES: SEE NOTE HCG QUAL - 05/01/14 00:00 HCG N BMP - 05/01/14 00:00 BCR 12.1 10-20 BUN 12 MG/DL 7-18 CA 9.4 MG/DL 8.4-10.2 CL 102 MEQ/L 98-107 CO2 23.8 MEQ/L 22-28 CREA 0.99 MG/DL 0.6-1.0 EGFR 72 eGFR >=60 GLU 118 MG/DL 70-105 K 3.7 MEQ/L 3.5-5.1 NA 137 MEQ/L 134-145 OSMSC 274.7 MOSML 280-300 Anion Gap 11.2 8-16 CBC WITH DIFF - 05/01/14 00:00 BASO% 0.5 % 0-2 EOS% 2.2 % 0-7.0 HCT 42.4 % 36.9-47.0 HGB 13.7 G/DL 12.0-16.0 LYMPH% 29.0 % 20-40 MCH 26.9 PG 27-31 MCHC 32.3 G/DL 33-37 MCV 83.1 FL 81-99 MONO% 8.8 % 0-10.0 MPV 11.3 FL 7.3-10.4 NEUTRO% 59.5 % 40-70 PLT 214 10^3u 130-400 RBC 5.1 10^6u 4.2-5.4 RDW 15.4 % 11.5-15.5 WBC 10.5 10^3u 4.8-10.8 NEUTRO# 6.3 10^3u 1.5-7.5 LYMPH# 3.1 10^3u 0.9-4.0 MONO# 0.9 10^3u 0-0.8 EOS# 0.2 10^3u 0-0.6 BASO# 0.1 10^3u 0-0.1 MARY - 05/01/14 00:00 MARY NOYEA [place]ET [place] - 05/01/14 00:00 [place]ET [place] JESSE CHLAMYDIA GC DNA - 05/01/14 00:00 CHLGCU1 NOT DETECTED NOT DETECTED CHLGCU2 NOT DETECTED NOT DETECTED NOTES: SEE NOTE UA - 05/02/14 00:00 PH 5.5 4.5-8.0 SG 1.025 1.003-1.035 UABILI NEGATIVE UABLD NEGATIVE UACOLOR YEL UAGLU NEGATIVE UAKET NEGATIVE UALEUK NEGATIVE UANIT NEGATIVE UAURO 0.2 0-0.2 CLARITY CL PROTEIN NEGATIVE UA WBC NOWBC UA RBC R05 SQUAMOUS EPITHELIAL CELLS 1+ BACTERIA RARE UA - 11/06/14 00:00 PH 7.0 4.5-8.0 SG 1.025 1.003-1.035 UABILI INVALID UABLD INVALID UACOLOR ORANGE UAGLU INVALID UAKET INVALID UALEUK INVALID UANIT INVALID UAURO INVALID CLARITY CLD PROTEIN INVALID UA WBC R510 UA RBC R2030 SQUAMOUS EPITHELIAL CELLS FEW BACTERIA 1+ CBC WITH DIFF - 11/22/14 00:00 BASO% 1.0 % 0-2 EOS% 2.7 % 0-7.0 HCT 41.1 % 36.9-47.0 HGB 13.1 G/DL 12.0-16.0 LYMPH% 30.3 % 20-40 MCH 27.1 PG 27-31 MCHC 31.9 G/DL 33-37 MCV 85.1 FL 81-99 MONO% 7.8 % 0-10.0 MPV 10.7 FL 7.3-10.4 NEUTRO% 57.6 % 40-70 PLT 249 10^3u 130-400 RBC 4.8 10^6u 4.2-5.4 RDW 14.3 % 11.5-15.5 WBC 8.9 10^3u 4.8-10.8 NEUTRO# 5.1 10^3u 1.5-7.5 LYMPH# 2.7 10^3u 0.9-4.0 MONO# 0.7 10^3u 0-0.8 EOS# 0.2 10^3u 0-0.6 BASO# 0.1 10^3u 0-0.1 IMM GRANULOCYTE % 0.6 % IMM GRANULOCYTE # 0.1 10^3u 0-5 CMP - 11/22/14 00:00 ALB 3.4 G/DL 3.5-5 ALP 79 IU/L 25-72 ALT 42 IU/L 12-65 AST 26 IU/L 10-42 BCR 10.6 10-20 BUN 9 MG/DL 7-18 CA 8.2 MG/DL 8.4-10.2 CL 107 MEQ/L 98-107 CO2 26.4 MEQ/L 22-28 CREA 0.85 MG/DL 0.6-1.0 EGFR 85 eGFR >=60 GLU 93 MG/DL 70-105 K 3.7 MEQ/L 3.5-5.1 NA 143 MEQ/L 134-145 OSMSC 283.4 MOSML 280-300 TBIL 0.2 MG/DL 0.1-1.0 TP 6.7 G/DL 6.0-8.3 Albumin/Globulin Ratio 1.0 0-8 Anion Gap 9.6 8-16 CBC WITH DIFF - 01/01/15 00:00 BASO% 0.7 % 0-2 EOS% 1.8 % 0-7.0 HCT 41.5 % 36.9-47.0 HGB 13.4 G/DL 12.0-16.0 LYMPH% 29.2 % 20-40 MCH 27.0 PG 27-31 MCHC 32.3 G/DL 33-37 MCV 83.7 FL 81-99 MONO% 6.6 % 0-10.0 MPV 10.5 FL 7.3-10.4 NEUTRO% 61.4 % 40-70 PLT 237 10^3u 130-400 RBC 5.0 10^6u 4.2-5.4 RDW 14.3 % 11.5-15.5 WBC 10.4 10^3u 4.8-10.8 NEUTRO# 6.4 10^3u 1.5-7.5 LYMPH# 3.1 10^3u 0.9-4.0 MONO# 0.7 10^3u 0-0.8 EOS# 0.2 10^3u 0-0.6 BASO# 0.1 10^3u 0-0.1 IMM GRANULOCYTE % 0.3 % IMM GRANULOCYTE # 0.0 10^3u 0-5 UA - 01/01/15 00:00 PH 6.0 4.5-8.0 SG 1.025 1.003-1.035 UABILI NEGATIVE UABLD NEGATIVE UACOLOR YEL UAGLU NEGATIVE UAKET NEGATIVE UALEUK 1+ UANIT NEGATIVE UAURO 0.2 0-0.2 CLARITY HAZY PROTEIN NEGATIVE UA WBC R2030 UA RBC R510 SQUAMOUS EPITHELIAL CELLS FEW BHCG - 01/01/15 00:00 HCG- Quantitative 0 MIUML 0-5 CMP - 01/01/15 00:00 ALB 3.8 G/DL 3.5-5 ALP 86 IU/L 25-72 ALT 58 IU/L 12-65 AST 34 IU/L 10-42 BCR 18.9 10-20 BUN 17 MG/DL 7-18 CA 8.6 MG/DL 8.4-10.2 CL 104 MEQ/L 98-107 CO2 24.7 MEQ/L 22-28 CREA 0.90 MG/DL 0.6-1.0 EGFR 80 eGFR >=60 GLU 118 MG/DL 70-105 K 3.8 MEQ/L 3.5-5.1 NA 140 MEQ/L 134-145 OSMSC 282.0 MOSML 280-300 TBIL 0.2 MG/DL 0.1-1.0 TP 7.2 G/DL 6.0-8.3 Albumin/Globulin Ratio 1.1 0-8 Anion Gap 11.3 8-16 CBC - 02/14/15 00:00 HCT 38.1 % 36.9-47.0 HGB 12.4 G/DL 12.0-16.0 MCH 27.3 PG 27-31 MCHC 32.5 G/DL 33-37 MCV 83.7 FL 81-99 MPV 10.9 FL 7.3-10.4 PLT 214 10^3u 130-400 RBC 4.6 10^6u 4.2-5.4 RDW 14.2 % 11.5-15.5 WBC 9.9 10^3u 4.8-10.8 SALICYLATES - 02/14/15 00:00 SALIC 2.9 MG/DL 2.0-20.0 CMP - 02/14/15 00:00 ALB 3.0 G/DL 3.5-5 ALP 83 IU/L 25-72 ALT 42 IU/L 12-65 AST 20 IU/L 10-42 BCR 14.6 10-20 BUN 13 MG/DL 7-18 CA 8.0 MG/DL 8.4-10.2 CL 103 MEQ/L 98-107 CO2 24.3 MEQ/L 22-28 CREA 0.89 MG/DL 0.6-1.0 EGFR 81 eGFR >=60 GLU 234 MG/DL 70-105 K 3.7 MEQ/L 3.5-5.1 NA 139 MEQ/L 134-145 OSMSC 285.2 MOSML 280-300 TBIL 0.1 MG/DL 0.1-1.0 TP 6.2 G/DL 6.0-8.3 Albumin/Globulin Ratio 0.9 0-8 Anion Gap 11.7 8-16 ACETAMINOPHEN - 02/14/15 00:00 ACETA 0 UG/ML 10.0-30.0 ETOH - 02/14/15 00:00 ETOH < 3 MG/DL 0-5 HCG QUAL - 02/14/15 00:00 HCG N DRUG SCREEN IN HOUSE - 02/14/15 00:00 MBAR N Negative MBENZO N Negative MCOCN N Negative MMAMP N Negative MMTD N Negative MOPIAT N Negative MPCP N Negative MTCA N Negative MTHC P Negative AMPHETAMINE N Negative CBC WITH DIFF - 02/23/15 00:00 BASO% 0.8 % 0-2 EOS% 2.2 % 0-7.0 HCT 44.2 % 36.9-47.0 HGB 14.1 G/DL 12.0-16.0 LYMPH% 28.8 % 20-40 MCH 27.1 PG 27-31 MCHC 31.9 G/DL 33-37 MCV 84.8 FL 81-99 MONO% 8.8 % 0-10.0 MPV 10.8 FL 7.3-10.4 NEUTRO% 58.9 % 40-70 PLT 271 10^3u 130-400 RBC 5.2 10^6u 4.2-5.4 RDW 14.3 % 11.5-15.5 WBC 8.5 10^3u 4.8-10.8 NEUTRO# 5.0 10^3u 1.5-7.5 LYMPH# 2.5 10^3u 0.9-4.0 MONO# 0.8 10^3u 0-0.8 EOS# 0.2 10^3u 0-0.6 BASO# 0.1 10^3u 0-0.1 IMM GRANULOCYTE % 0.5 % IMM GRANULOCYTE # 0.0 10^3u 0-5 HCG QUAL - 02/23/15 00:00 HCG N TSH - 02/23/15 00:00 TSH 0.91 UIUML 0.52-4.13 CMP - 02/23/15 00:00 ALB 3.8 G/DL 3.5-5 ALP 90 IU/L 25-72 ALT 67 IU/L 12-65 AST 30 IU/L 10-42 BCR 14.2 10-20 BUN 15 MG/DL 7-18 CA 8.9 MG/DL 8.4-10.2 CL 105 MEQ/L 98-107 CO2 25.5 MEQ/L 22-28 CREA 1.06 MG/DL 0.6-1.0 EGFR 66 eGFR >=60 GLU 68 MG/DL 70-105 K 3.4 MEQ/L 3.5-5.1 NA 142 MEQ/L 134-145 OSMSC 282.3 MOSML 280-300 TBIL 0.3 MG/DL 0.1-1.0 TP 7.2 G/DL 6.0-8.3 Albumin/Globulin Ratio 1.1 0-8 Anion Gap 11.5 8-16 UA - 02/23/15 00:00 PH 6.0 4.5-8.0 SG 1.015 1.003-1.035 UABILI 1+ UABLD 2+ UACOLOR YEL UAGLU NEGATIVE UAKET TRACE UALEUK 3+ UANIT NEGATIVE UAURO 0.2 0-0.2 CLARITY CLD PROTEIN TRACE UA WBC R1020 UA RBC R05 SQUAMOUS EPITHELIAL CELLS 4+ BACTERIA OCC AMORPHOUS CRYSTALS FEW DRUG SCREEN IN HOUSE - 02/23/15 00:00 MBAR N Negative MBENZO N Negative MCOCN N Negative MMAMP P Negative MMTD N Negative MOPIAT N Negative MPCP N Negative MTCA N Negative MTHC P Negative AMPHETAMINE P Negative DRUG SCREEN IN HOUSE - 03/16/15 00:00 MBAR N Negative MBENZO N Negative MCOCN N Negative MMAMP N Negative MMTD N Negative MOPIAT N Negative MPCP N Negative MTCA N Negative MTHC N Negative AMPHETAMINE N Negative UCG GROUP - 03/16/15 00:00 UCG N Negative CBC WITH DIFF - 11/15/15 00:00 BASO% 1.0 % 0-2 EOS% 1.0 % 0-7.0 HCT 42.6 % 36.9-47.0 HGB 13.9 G/DL 12.0-16.0 LYMPH% 25.4 % 20-40 MCH 28.1 PG 27-31 MCHC 32.6 G/DL 33-37 MCV 86.2 FL 81-99 MONO% 8.7 % 0-10.0 MPV 11.1 FL 7.3-10.4 NEUTRO% 63.8 % 40-70 PLT 231 10^3u 130-400 RBC 4.9 10^6u 4.2-5.4 RDW 14.6 % 11.5-15.5 WBC 9.5 10^3u 4.8-10.8 NEUTRO# 6.1 10^3u 1.5-7.5 LYMPH# 2.4 10^3u 0.9-4.0 MONO# 0.8 10^3u 0-0.8 EOS# 0.1 10^3u 0-0.6 BASO# 0.1 10^3u 0-0.1 IMM GRANULOCYTE % 0.1 % IMM GRANULOCYTE # 0.0 10^3u 0-5 HCG QUAL - 11/15/15 00:00 HCG N Complete urinalysis with reflex to culture - 03/01/18 19:50 Urine color determination YELLOW NRG Urine clarity determination CLEAR NRG Urine pH measurement by test strip 8 5-9 Specific gravity of urine by test strip 1.010 1.016- 1.022 Urine protein assay by test strip, semi-quantitative 1+ NEGATIVE Urine glucose detection by automated test strip NEGATIVE NEGATIVE Erythrocytes detection in urine sediment by light microscopy NEGATIVE NEGATIVE Urine ketones detection by automated test strip NEGATIVE NEGATIVE Urine nitrite detection by test strip NEGATIVE NEGATIVE Urine total bilirubin detection by test strip NEGATIVE NEGATIVE Urine urobilinogen measurement by automated test strip (mass/volume) NORMAL NORMAL Urine leukocyte esterase detection by dipstick 1+ NEGATIVE Automated urine sediment erythrocyte count by microscopy (number/high power field) NONE NRG Automated urine sediment leukocyte count by microscopy (number/high power field ) [HPF] NRG Bacteria detection in urine sediment by light microscopy FEW NRG Squamous epithelial cells detection in urine sediment by light microscopy 2-5 NRG Crystals detection in urine sediment by light microscopy NONE NRG Casts detection in urine sediment by light microscopy NONE NRG Mucus detection in urine sediment by light microscopy SMALL NRG Complete urinalysis with reflex to culture NO NRG Complete urinalysis with reflex to culture - 04/12/18 05:10 Urine color determination YELLOW NRG Urine clarity determination VERY CLOUDY NRG Urine pH measurement by test strip 7 5-9 Specific gravity of urine by test strip 1.010 1.016- 1.022 Urine protein assay by test strip, semi-quantitative 4+ NEGATIVE Urine glucose detection by automated test strip NEGATIVE NEGATIVE Erythrocytes detection in urine sediment by light microscopy 4+ NEGATIVE Urine ketones detection by automated test strip NEGATIVE NEGATIVE Urine nitrite detection by test strip NEGATIVE NEGATIVE Urine total bilirubin detection by test strip NEGATIVE NEGATIVE Urine urobilinogen measurement by automated test strip (mass/volume) NORMAL NORMAL Urine leukocyte esterase detection by dipstick 1+ NEGATIVE Automated urine sediment erythrocyte count by microscopy (number/high power field) NONE NRG Automated urine sediment leukocyte count by microscopy (number/high power field ) [HPF] NRG Bacteria detection in urine sediment by light microscopy FEW NRG Squamous epithelial cells detection in urine sediment by light microscopy 10-25 NRG Crystals detection in urine sediment by light microscopy PRESENT NRG Casts detection in urine sediment by light microscopy NONE NRG Mucus detection in urine sediment by light microscopy NEGATIVE NRG Complete urinalysis with reflex to culture NO NRG Amorphous sediment detection in urine sediment by light microscopy LARGE DEMETRIUS URATES NRG Urine drug screening test - 04/12/18 05:10 Urine phencyclidine detection by screening method NEGATIVE NEGATIVE Urine benzodiazepines detection by screening method NEGATIVE NEGATIVE Urine cocaine detection NEGATIVE NEGATIVE Urine amphetamines detection by screening method NEGATIVE NEGATIVE Urine methamphetamine detection by screening method NEGATIVE NEGATIVE Urine cannabinoids detection by screening method NEGATIVE NEGATIVE Urine opiates detection by screening method NEGATIVE NEGATIVE Urine barbiturates detection NEGATIVE NEGATIVE Screening urine tricyclic antidepressants detection NEGATIVE NEGATIVE Urine methadone detection by screening method NEGATIVE NEGATIVE Urine oxycodone detection NEGATIVE NEGATIVE Urine propoxyphene detection NEGATIVE NEGATIVE Complete blood count (CBC) with automated white blood cell (WBC) differential - 04/12/18 05:58 Blood leukocytes automated count (number/volume) 8.9 10*3/uL 4.3-11.0 Blood erythrocytes automated count (number/volume) 4.79 10*6/uL 4.35-5.85 Venous blood hemoglobin measurement (mass/volume) 13.9 g/dL 11.5-16.0 Blood hematocrit (volume fraction) 41 % 35-52 Automated erythrocyte mean corpuscular volume 86 [foz_us] 80-99 Automated erythrocyte mean corpuscular hemoglobin (mass per erythrocyte) 29 pg 25-34 Automated erythrocyte mean corpuscular hemoglobin concentration measurement ( mass/volume) 34 g/dL 32-36 Automated erythrocyte distribution width ratio 16.6 % 10.0-14.5 Automated blood platelet count (count/volume) 184 10*3/uL 130-400 Automated blood platelet mean volume measurement 12.4 [foz_us] 7.4-10.4 Automated blood neutrophils/100 leukocytes 57 % 42-75 Automated blood lymphocytes/100 leukocytes 29 % 12-44 Blood monocytes/100 leukocytes 9 % 0-12 Automated blood eosinophils/100 leukocytes 4 % 0-10 Automated blood basophils/100 leukocytes 1 % 0-10 Blood neutrophils automated count (number/volume) 5.1 10*3 1.8-7.8 Blood lymphocytes automated count (number/volume) 2.6 10*3 1.0-4.0 Blood monocytes automated count (number/volume) 0.8 10*3 0.0-1.0 Automated eosinophil count 0.4 10*3/uL 0.0-0.3 Automated blood basophil count (count/volume) 0.0 10*3/uL 0.0-0.1 Blood type T Indirect antibody screen panel - 04/12/18 05:58 ABO+Rh group OP [facility] Transfusion band number [id number] [facility] Blood group antibody screen NEGATIVE [facility] Magnesium - 04/12/18 05:58 Magnesium 1.9 mg/dL 1.8-2.4 Complete blood count (CBC) with automated white blood cell (WBC) differential - 04/13/18 06:33 Blood leukocytes automated count (number/volume) 9.4 10*3/uL 4.3-11.0 Blood erythrocytes automated count (number/volume) 4.50 10*6/uL 4.35-5.85 Venous blood hemoglobin measurement (mass/volume) 12.8 g/dL 11.5-16.0 Blood hematocrit (volume fraction) 39 % 35-52 Automated erythrocyte mean corpuscular volume 86 [foz_us] 80-99 Automated erythrocyte mean corpuscular hemoglobin (mass per erythrocyte) 28 pg 25-34 Automated erythrocyte mean corpuscular hemoglobin concentration measurement ( mass/volume) 33 g/dL 32-36 Automated erythrocyte distribution width ratio 16.5 % 10.0-14.5 Automated blood platelet count (count/volume) 138 10*3/uL 130-400 Automated blood platelet mean volume measurement 12.4 [foz_us] 7.4-10.4 Automated blood neutrophils/100 leukocytes 65 % 42-75 Automated blood lymphocytes/100 leukocytes 24 % 12-44 Blood monocytes/100 leukocytes 8 % 0-12 Automated blood eosinophils/100 leukocytes 3 % 0-10 Automated blood basophils/100 leukocytes 0 % 0-10 Blood neutrophils automated count (number/volume) 6.1 10*3 1.8-7.8 Blood lymphocytes automated count (number/volume) 2.2 10*3 1.0-4.0 Blood monocytes automated count (number/volume) 0.8 10*3 0.0-1.0 Automated eosinophil count 0.3 10*3/uL 0.0-0.3 Automated blood basophil count (count/volume) 0.0 10*3/uL 0.0-0.1 Encounters ACCT No. Visit Date/Time Discharge Status Pt. Type Provider Facility Loc./Unit Complaint [id number] 10/04/2017 12:42:00 10/04/2017 12:42:00 DIS Outpatient COLLIN WEISS, JUANCARLOS MICHAELS [id number] 12/22/2017 09:16:02 ACT Unknown Enma WEISS, Raulito [id number] 12/27/2015 10:46:59 12/27/2015 23:59:59 CLS Outpatient Deep Tim [id number] 03/17/2018 09:08:00 03/17/2018 23:59:59 CLS Outpatient GREG GRAY MD [facility] RAD SURVEY [id number] 03/01/2018 18:57:00 03/01/2018 21:00:00 DIS Outpatient GREG GRAY MD [facility] WSo ABD PAIN [id number] 04/20/2018 10:00:00 PEN Preadmit GREG GRAY MD [facility] RAD COMPLETE SURVEY. [id number] 04/12/2018 05:20:00 ACT Inpatient MARINA WEISS, GREG Lam [facility] LDRP LABOR [id number] 03/01/2018 19:00:00 Document Registration [id number] 01/23/2016 01:30:00 01/25/2016 13:21:00 DIS Inpatient ALEXIA DOBSON [facility] VN [id number] 12/12/2015 01:17:54 12/17/2015 15:55:00 DIS Inpatient RENETTA DON [facility] VN [id number] 12/15/2015 11:00:51 Document Registration [id number] 09/19/2017 12:36:29 09/19/2017 23:59:59 DIS Outpatient Corky [facility] TA LAB lab [id number] 09/17/2017 19:16:00 09/17/2017 21:23:00 DIS Emergency Corky [facility] TA ED ed visit [id number] 08/06/2017 19:48:00 08/07/2017 00:10:00 DIS Emergency ZOILA GUTHRIE [facility] TA ED ED visit [id number] 06/03/2017 15:58:00 06/03/2017 16:55:00 DIS Emergency Corky [facility] TA ED ed visit [id number] 12/13/2016 19:21:01 12/16/2016 11:01:00 DIS Inpatient RAULITO ISRAEL [facility] TA MS cellulitis of the neck [id number] 12/13/2016 13:39:00 12/13/2016 18:08:00 DIS Emergency ZOILA GUTHRIE [facility] TA ED swollen chin [id number] 12/11/2016 13:03:00 12/11/2016 13:45:00 DIS Emergency CARLOS BLAND [facility] TA ED cellulitis on face [id number] 09/06/2016 16:09:00 09/06/2016 17:17:00 DIS Emergency HENRRY KOHLER [facility] TA ED breast pain [id number] 08/28/2016 14:24:00 08/28/2016 16:00:00 DIS Emergency ISIS ALFREDO [facility] TA ED vaginal bleeding [id number] 07/01/2016 17:35:00 07/01/2016 20:23:00 DIS Emergency CARLOS BLAND [facility] AT ED PTSD, mental issues [id number] 05/27/2016 22:28:49 05/27/2016 23:59:59 CLS Outpatient HENRRY FRIEDMAN Ren [facility] TA Ambulance AMBULANCE [id number] 05/27/2016 18:46:00 05/27/2016 20:17:00 DIS Emergency CARLOS BLAND [facility] TA ED headache [id number] 12/16/2016 16:31:29 ACT RAULITO FRIEDMAN [facility] TA INF Cellulitis of the neck [id number] 05/27/2016 18:52:28 Document Registration [id number] 12/02/2017 22:57:21 ACT Document Registration [id number] 08/31/2013 09:47:00 08/31/2013 23:59:59 CLS Outpatient CARLOS NEGRETE MD [id number] 08/15/2013 10:33:00 08/15/2013 23:59:59 CLS Outpatient SAMI GARAY APRN [id number] 06/07/2013 13:40:00 06/07/2013 23:59:59 CLS Outpatient SAMI GARAY APRN [id number] 01/04/2013 14:05:00 Document Registration [id number] 01/22/2016 18:45:00 01/23/2016 00:00:00 DIS JOSE FRANCISCO CARRILLO MD, [facility] 1SOU [id number] 08/17/2012 22:18:00 Document Registration [id number] 07/30/2012 01:52:00 Document Registration [id number] 11/15/2015 15:42:00 11/15/2015 17:44:00 DIS Emergency SIMRAN GOODWIN [facility] EMR [id number] 11/15/2015 15:42:00 11/15/2015 15:42:00 DIS Outpatient SIMRAN GOODWIN [facility] EMR [id number] 03/16/2015 18:58:00 03/16/2015 20:11:00 DIS Emergency DILWENDY MUNGUIA [facility] EMR [id number] 03/16/2015 19:15:00 03/16/2015 19:15:00 DIS Outpatient WENDY BANDA [facility] EMR [id number] 02/23/2015 16:55:00 02/23/2015 19:03:00 DIS Emergency RICDaisySIMRAN [facility] EMR [id number] 02/14/2015 02:23:00 02/14/2015 14:22:00 DIS Emergency ELDERHENRRY Ren [facility] EMR [id number] 02/14/2015 02:24:00 02/14/2015 02:24:00 DIS Outpatient HENRRY FRIEDMAN [facility] EMR [id number] 02/10/2015 14:51:00 02/10/2015 16:10:00 DIS Emergency ZOILA GUTHRIE [facility] EMR [id number] 01/01/2015 20:31:00 01/01/2015 22:10:00 DIS Emergency BUDDYSIMRAN [facility] EMR [id number] 12/25/2014 22:28:00 12/25/2014 23:22:00 DIS Emergency BOOKER BAILEY [facility] EMR [id number] 11/22/2014 14:12:00 11/22/2014 23:59:59 CLS Outpatient ARI MAN [facility] EMR [id number] 11/22/2014 14:05:00 11/22/2014 16:58:00 DIS Emergency ARI MAN [facility] EMR [id number] 11/06/2014 01:57:00 11/06/2014 03:38:00 DIS Emergency ARI MAN [facility] EMR [id number] 08/14/2014 01:15:00 08/14/2014 04:00:00 DIS Emergency RAULITO ISRAEL [facility] EMR [id number] 08/14/2014 01:15:00 08/14/2014 01:15:00 DIS Outpatient RAULITO ISRAEL [facility] EMR [id number] 05/29/2014 22:34:00 05/30/2014 00:35:00 DIS Emergency RAULITO ISRAEL [facility] EMR [id number] 05/29/2014 23:06:00 05/29/2014 23:06:00 DIS Outpatient RAULITO ISRAEL [facility] EMR [id number] 05/20/2014 00:09:00 05/20/2014 00:25:00 DIS Emergency THADDEUS BURGESS [facility] EMR [id number] 05/20/2014 00:10:00 05/20/2014 00:10:00 DIS Outpatient THADDEUS BURGESS [facility] EMR [id number] 05/09/2014 19:52:00 05/09/2014 20:15:00 DIS Emergency CARLOS DAMIAN [facility] EMR [id number] 05/04/2014 23:09:00 05/04/2014 23:35:00 DIS Emergency HENRRY FRIEDMAN [facility] EMR [id number] 05/04/2014 08:49:00 05/04/2014 08:49:00 DIS Outpatient RAULITO ISRAEL [facility] RAD [id number] 05/01/2014 22:49:00 05/02/2014 01:00:00 DIS Emergency RAULITO ISRAEL [facility] EMR [id number] 04/16/2014 19:47:00 04/16/2014 22:10:00 DIS Emergency CARLOS DAMIAN [facility] EMR [id number] 03/21/2014 20:56:00 03/21/2014 21:53:00 DIS Emergency WENDY BANDA [facility] EMR [id number] 02/17/2014 22:42:00 02/18/2014 00:20:00 DIS Emergency HENRRY FRIEDMAN [facility] EMR [id number] 02/11/2014 21:53:00 02/11/2014 23:40:00 DIS HENRRY Erazo [facility] EMR [id number] 02/09/2014 21:18:00 02/10/2014 01:46:00 DIS Emergency HENRRY FRIEDMAN [facility] EMR [id number] 01/31/2014 19:14:00 01/31/2014 21:00:00 DIS Emergency WENDY BANDA [facility] EMR [id number] 01/18/2014 15:35:00 01/18/2014 20:50:00 DIS Emergency SIMRAN GOODWIN W [facility] EMR [id number] 01/18/2014 16:51:00 01/18/2014 16:51:00 DIS Outpatient SIMRAN GOODWIN W [facility] EMR [id number] 11/08/2013 22:51:00 11/09/2013 01:02:00 DIS Emergency RAULITO ISRAEL [facility] EMR [id number] 12/11/2015 17:13:00 Document Registration [id number] 04/22/2015 00:00:00 Document Registration [id number] 08/02/2014 23:49:00 Document Registration [id number] 04/22/2014 00:00:00 Document Registration [id number] 04/22/2014 00:00:00 Document Registration [id number] 04/22/2014 00:00:00 Document Registration [id number] 04/22/2014 00:00:00 Document Registration [id number] 04/22/2014 00:00:00 Document Registration [id number] 04/22/2014 00:00:00 Document Registration [id number] 04/22/2013 00:00:00 Document Registration [id number] 04/22/2013 00:00:00 Document Registration [id number] 04/22/2013 00:00:00 Document Registration [id number] 04/22/2013 00:00:00 Document Registration [id number] 04/22/2013 00:00:00 Document Registration [id number] 04/22/2013 00:00:00 Document Registration [id number] 04/22/2013 00:00:00 Document Registration [id number] 04/22/2013 00:00:00 Document Registration [id number] 04/22/2013 00:00:00 Document Registration
--- NOTE | 2018-04-17 06:54 | Diagnostic Imaging Report ---
INDICATION: Shortness of breath, cough and congestion PA and lateral chest Heart size and pulmonary vascularity are normal. Lungs are clear. There are no effusions or pneumothoraces. IMPRESSION: Negative chest Dictated by: Dictated on workstation # [id number]
== END 2018-04-17 00:28 | disposition home or self-care (01) ==
LOC: EDUNIT# 22:43 → ER 22:44
DX: O14.95 Unspecified pre-eclampsia, complicating the puerperium (principal); O99.345 Other mental disorders complicating the puerperium; F90.9 Attention-deficit hyperactivity disorder, unspecified type; F41.9 Anxiety disorder, unspecified; F43.10 Post-traumatic stress disorder, unspecified; F31.9 Bipolar disorder, unspecified; F20.9 Schizophrenia, unspecified; O99.335 Smoking (tobacco) complicating the puerperium; F17.210 Nicotine dependence, cigarettes, uncomplicated; Z88.0 Allergy status to penicillin; Z88.8 Allergy status to other drugs, medicaments and biological substances
CPT/HCPCS: 36415; 71046; 80053; 81000; 83735; 85025